=== PATIENT | male | born 1990 | race American Indian/Alaskan Native ===

== ENCOUNTER 2021-09-24 19:08 | Emergency (ER) | payer SELFPAY ==
[2021-09-24 20:05] VITALS: BP 130/99
[2021-09-24] MEDS ORDERED: TETANUS,DIPH,PERTUSS(ACELL) VACCINE 0.5 ML SYRINGE IM ONE (20:27)
[2021-09-24] MEDS ORDERED: TETANUS,DIPHTHERIA TOXOID ADULT 0.5 ML INJ IM STA (20:27)
[2021-09-24] MEDS ORDERED: ceFAZolin 1 GM VIAL IM STA (20:27)
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
== END 2021-09-24 23:30 | disposition home or self-care (01) ==
LOC: ED 19:08
DX: S92.411A Displaced fracture of proximal phalanx of right great toe, initial encounter for closed fracture (principal); F17.200 Nicotine dependence, unspecified, uncomplicated; W34.09XA Accidental discharge from other specified firearms, initial encounter; Y93.89 Activity, other specified; Y92.89 Other specified places as the place of occurrence of the external cause; Y99.8 Other external cause status
CPT/HCPCS: 73630; 90471; 90714; 96372; 99283; J0690